=== PATIENT | female | born 1995 | race Caucasian/White ===

== ENCOUNTER 2019-09-28 23:31 | Inpatient (IN) | payer BC ==
[~2019-09-28] VITALS: Ht 160 cm; Wt 94.5 kg
--- NOTE | 2019-09-28 23:30 | NUR ---
2330 G1L0 39.3 WEEK GEST TO LR5 WITH C/O KIMBERLEE ALL DAY BUT BECOMING REGULAR WITH BACK LABOR AT 2100 TONIGHT. EFM ON. UNABLE TO CAD DRAFTER CONTRACTIONS BUT PALPATED MOD EVERY THREE MINUTES. SVE /-2. ADM ASSESSMENT COMPLETED.
[2019-09-28 23:31] VITALS: BP 128/85; PULSE 75; TEMP 98.1
[~2019-09-28 23:31] MED LIST: SPRINTEC 35 MCG1 TAB PO
[2019-09-28 23:40] VITALS: BP 128/85; PULSE 75; TEMP 98.1
[2019-09-28] MEDS ORDERED: PRENATAL TABLET PO (23:51)
[2019-09-29] VITALS (21 sets, daily range): BP systolic 99–128; BP diastolic 56–84; PULSE 70–121; TEMP 98–98.6
--- NOTE | 2019-09-29 00:40 | NUR ---
0040 SVE /-2. MOVING ALL AROUND IN BED DUE TO BACK DISCOMFORT. UNABLE TO OBTAIN CONTINUOUS HEART RATE. SOMETIMES PICKING UP MOMS HEART RATE. 0050 DR JOSEPH NOTIFIED AND ADM ORDER OBTAINED.
--- NOTE | 2019-09-29 01:00 | NUR ---
0100 IV STARTED WITH LR BOLUS. 0120 SITTING UPRIGHT AND LEANING OVER WITH CONTRACTION. UNABLE TO HARDWARE DESIGNER FHT'S DURING THIS TIME. 0130 ON BIRTHING BALL. LEANING OVER DURING AND INBETWEEN CONTRACTIONS. UNABLE TO HARDWARE DESIGNER CONTINOUS FHT'S. FHT'S 120'S WHEN EFM HANDHELD.
[2019-09-29 01:15] LABS: BASO # 0.1 (0.0-0.2); BASO % 0.4 % (0.0-2.0); EOS # 0.1 (0.0-0.7); EOS % 0.5 % (0-4.0); GRAN # 11.5 (1.4-6.5); GRAN % 76.9 % (42.2-75.2); HEMATOCRIT 40.4 % (37.0-47.0); HEMOGLOBIN 13.6 g/dl (12.5-16.0); LYMPH % 13.2 % (20.0-51.0); MEAN CELL VOLUME 87 fl (80.0-100.0); MEAN CORPUSCULAR HEMOGLOBIN 29 pg (27.0-31.0); MEAN CORPUSCULAR HGB CONC 34 g/dl (33.0-37.0); MEAN PLATELET VOLUME 10.1 fl (7.4-10.4); MONO # 1.3 (0.1-0.6); MONO % 8.5 % (1.7-9.3); PLATELET COUNT 329 K/mm3 (130-400); RED BLOOD COUNT 4.62 M/mm3 (4.10-5.30); REDCELL DISTRIBUTION WIDTH-CV 13.2 % (11.5-14.5)
--- NOTE | 2019-09-29 01:50 | NUR ---
0150 SITTING ON SIDE OF BED FOR EPIDURAL PLACEMENT.
--- NOTE | 2019-09-29 02:00 | NUR ---
0200 EPID DOSED. SEE ANESTHSIA RECORDS FOR MORE INFO. UNABLE TO LENS SHAPER GRINDER FHT'S WHILE SITTING UP. PICKING UP MATERNAL PULSE.
--- NOTE | 2019-09-29 04:00 | NUR ---
0400 SVE COMPLETE DILITATION 0402 PUSHES WITH CONTRACTION AND SROM WITH CL FLUID.
--- NOTE | 2019-09-29 04:15 | NUR ---
6790 DR JOSEPH CALLED TO COME TO DELIVERY. READIED FOR DELIVERY. GENTLE PUSHES WITH CONTRACTIONS.
--- NOTE | 2019-09-29 04:33 | NUR ---
0433 DELIVERY OF VIABLE FE OVER 2 DEGREE LAC. . REMAINS IN LR5. IV CONTS TO INFUSE.
--- NOTE | 2019-09-29 05:55 | NUR ---
0550 UNMEASURED EMESIS. VOIDED WHILE VOMITING. 3 CM CLOT PASSED ALSO. FF. NO EXCESS VAG BLEEDING NOTED.
[2019-09-30 00:30] VITALS: BP 127/68; PULSE 77; TEMP 97.6
[2019-09-30 07:00] VITALS: BP 114/78; PULSE 73; TEMP 97.8
[2019-09-30] MEDS ORDERED: MOTRIN 800800 MG/TAB PO (08:40)
[2019-09-30 17:28] VITALS: BP 127/83; PULSE 111; TEMP 97.6
[2019-09-30 20:55] VITALS: BP 120/70; PULSE 72; TEMP 98.2
[2019-10-01 06:30] VITALS: BP 115/79; PULSE 86; TEMP 98
== END 2019-10-01 13:45 | disposition home or self-care (01) | DRG 807 ==
LOC: LDRO 23:31 → LDR 09-29 01:18 → OB 09-29 01:18
PROVIDERS: ADMIT Obstetrics & Gynecology
PROC: 10E0XZZ Delivery of Products of Conception, External Approach (ICD-10-PCS; principal; 2019-09-29)
PROC: 0KQM0ZZ Repair Perineum Muscle, Open Approach (ICD-10-PCS; 2019-09-29)
DX: O69.81X0 Labor and delivery complicated by cord around neck, without compression, not applicable or unspecified (principal); Z37.0 Single live birth; O70.1 Second degree perineal laceration during delivery; Z3A.39 39 weeks gestation of pregnancy
CPT/HCPCS: J2590; J2791; J7120

== ENCOUNTER 2020-12-25 11:32 | Inpatient (IN) | payer BC ==
[2020-12-25] VITALS (41 sets, daily range): BP systolic 93–126; BP diastolic 53–76; PULSE 62–99; TEMP 97.8–98
[~2020-12-25] VITALS: Ht 165.1 cm; Wt 95.0 kg
[~2020-12-25 11:32] MED LIST changes: +MOTRIN 800800 MG/TAB PO; +PRENATAL TABLET PO
--- NOTE | 2020-12-25 11:38 | NUR ---
Admits to L&D for labor check, accompanied by significant other. Ambulatory to unit. Verbalizes she began ondina last night, membranes were stripped at office. Reports throughout the day, contractions have become every 5 minutes, lasting approximately 1 minute each.
--- NOTE | 2020-12-25 12:15 | NUR ---
Update given to Dr. Brannon. Orders for labor admission received. Plan of care reviewed with pt and at the bedside.
[2020-12-25 12:46] LABS: BASO % 0.2 % (0.0-2.0); EOS % 0.3 % (0-4.0); GRAN # 10.9 (1.4-6.5); GRAN % 79.6 % (42.2-75.2); HEMATOCRIT 35.5 % (37.0-47.0); HEMOGLOBIN 11.8 g/dl (12.5-16.0); LYMPH # 1.6 (1.2-3.4); LYMPH % 11.7 % (20.0-51.0); MEAN CELL VOLUME 84 fl (80.0-100.0); MEAN CORPUSCULAR HEMOGLOBIN 28 pg (27.0-31.0); MEAN CORPUSCULAR HGB CONC 33 g/dl (33.0-37.0); MEAN PLATELET VOLUME 9.9 fl (7.4-10.4); MONO # 1.1 (0.1-0.6); MONO % 7.7 % (1.7-9.3); PLATELET COUNT 349 K/mm3 (130-400); RED BLOOD COUNT 4.23 M/mm3 (4.10-5.30)
--- NOTE | 2020-12-25 12:50 | NUR ---
1250- Pt sitting up on the edge of the bed for epidural placement. 1254- Ceci, FLIGHT TEST SHOP MECHANIC at the bedside. Time out done. EFM intermittently tracing maternal HR as coorelates with SPO2 monitor. 1304- Test dose given per Ceci. See anesthesia record for details. 1310- Assisted pt back to supine position with left wedge. Tyrone monitors and EFM adjusted.
--- NOTE | 2020-12-25 19:20 | NUR ---
Dr. Brannon at bedside. AROM of forebag at this time, moderate amount of clear fluid. SVE /-1. Positioned to left lateral with peanut ball for comfort.
--- NOTE | 2020-12-25 21:02 | NUR ---
2039 - Pt called out reporting feeling more rectal pressure. SVE 10/100/+3. Dr. Brannon called for delivery, see physician notification. 2049 - Wolf catheter removed. 50 mL clear, yellow urine out. 2054 - Room set up for delivery. Pt positioned into footplates. Educated on pushing techniques, verbalized understanding. Dr. Brannon gowned and gloved at perineum. Initial push at this time. 2099 - Pushing well with contractions. Nursery RN Crystal Amor at bedside. Prolonged variable decelerations down to 90 bpm with pushes. Large crown with pushes, delivery imminent. 2101 - Spontaneous vaginal delivery of viable boy. placed to mother's abdomen. Care of assumed to JOSEPH Pisano. Cord clamped x 2 by and cut by FOB. Cord blood obtained. Pitocin off. 2104 - Spontaneous delivery of intanct placenta. Pitocin restarted at 333 mL/hr. Fundus firm and down 1 from umbilicus, mininal bleeding. Second degree laceration repaired by . Epidural off. EBL 300 2114 - Pericare provided. New chux beneath patient. Ice pack to perineum. recovery started. See physician delivery note.
[2020-12-26 00:15] VITALS: BP 101/71; PULSE 89
--- NOTE | 2020-12-26 00:45 | NUR ---
Pt able to lift and hold each leg off bed for 5 seconds. Positioned to sitting on edge of bed. Epidural catheter removed. Tip smooth, blue, and intact. Pt able to ambulate to bathroom with 1 person assistance. Able to void 100 mL. Pericare explained and provided. Mesh panties and peripad on. Clean gown on. Pt transferred to room 207 by wheelchair with belongings.
[2020-12-26 04:05] VITALS: BP 114/57; PULSE 55; TEMP 97.8
[2020-12-26] MEDS ORDERED: IBU600 MG PO (07:45)
[2020-12-26 07:53] LABS: HEMOGLOBIN 11.7 g/dl (12.5-16.0)
[2020-12-26 07:55] LABS: HEMATOCRIT 36.1 % (37.0-47.0)
--- NOTE | 2020-12-26 18:30 | NUR ---
Report recieved. Resting in bed. Requests to discharge at 24 hours. POC reviewed. Questions invited.
[2020-12-26 20:00] VITALS: BP 119/76; PULSE 85; TEMP 97.8
--- NOTE | 2020-12-26 22:11 | NUR ---
Reviewed discharge education, medication and appointment. Denied questions or concerns. Encouraged to call with questions or concerns once home. 2230 - Ambulated off unit at this time for discharged. Spouse at the car.
== END 2020-12-26 22:30 | disposition home or self-care (01) | DRG 807 ==
LOC: LDRO 11:32 → LDR 12:00 → OB 12-26 00:57
PROVIDERS: Obstetrics & Gynecology; ADMIT Obstetrics & Gynecology
PROC: 10E0XZZ Delivery of Products of Conception, External Approach (ICD-10-PCS; principal; 2020-12-25)
PROC: 0KQM0ZZ Repair Perineum Muscle, Open Approach (ICD-10-PCS; 2020-12-25)
PROC: 3E0234Z Introduction of Serum, Toxoid and Vaccine into Muscle, Percutaneous Approach (ICD-10-PCS; 2020-12-26)
DX: O48.0 Post-term pregnancy (principal); Z37.0 Single live birth; O70.1 Second degree perineal laceration during delivery; Z3A.40 40 weeks gestation of pregnancy
CPT/HCPCS: J2405; J2590; J2791; J7120